=== PATIENT | female | born 1990 | race Caucasian/White ===

== ENCOUNTER 2018-06-10 11:10 | Emergency (ER) | payer OTHER, SELFPAY ==
[2018-06-10 11:14] VITALS: BP 106/58; PULSE 77; RESP 14; TEMP 36.7; O2SAT 100
--- NOTE | 2018-06-10 11:25 | DI.US.S_ITS ---
PROCEDURE: US PELVIC COMPLETE INDICATIONS: POSITIVE HOME ; VAGINAL BLEEDING TECHNIQUE: Real-time scanning was performed of the pelvic organs, with image documentation. Additional endovaginal scanning was necessary due to incomplete visualization of the adnexal and endometrial structures by transabdominal scanning. COMPARISON: None. FINDINGS: Transabdominal scanning: Limited scanning through the kidneys shows no hydronephrosis. No pathologic free abdominal or pelvic fluid. Endovaginal scanning: Uterus: Uterus is normal in size at 7.2 x 3.3 x 4.1 cm. The endometrium measures 7.2 mm in combined thickness. Minimal fluid is noted in the endometrium. Ovaries: Right ovary measures 20 x 19 x 24 mm. Left ovary measures 20 x 16 x 30 mm. IMPRESSION: 1. Unremarkable exam. No visualized intra-or extrauterine . Recommend correlation with beta hCG levels and continued interval followup as indicated. Dictated by: Martha Ring M.D. on 06/10/2018 at 13:39 Approved by: Martha Ring M.D. on 06/10/2018 at 13:40
[2018-06-10 11:41] LABS: Add Manual Diff / Slide Review NO; Basophils Absolute Auto 0 /uL (0-100); Basophils Percent Auto 0.4 % (0-2); Eosinophils Absolute Auto 200 /uL (0-450); Eosinophils Percent Auto 3.1 % (2-4); Hematocrit 41.9 % (36-46); Hemoglobin 14.3 g/dL (12.0-16.0); Lymphocytes Absolute Auto 2200 /uL (1100-4500); Lymphocytes Percent Auto 27.3 % (25-40); Mean Corpuscular HGB Conc 34.2 % (30-36); Mean Corpuscular Hemoglobin 30.7 PG (26-34); Mean Corpuscular Volume 89.9 fL (80-100); Monocytes Absolute Auto 700 /uL (0-900); Monocytes Percent Auto 8.6 % (3-14); Neutrophils Absolute Auto 4900 /uL (1500-7000); Neutrophils Percent Auto 60.6 % (50-75); Platelet Count 247 X10^3/uL (150-400); Red Blood Cell Count 4.66 X10^6/uL (4.0-5.2); Red Cell Distribution Width 12.7 % (11.6-14.8)
[2018-06-10 12:49] LABS: HCG Quantitative /Beta subunit 17.03 mIU/mL
[2018-06-10 13:29] VITALS: BP 121/66; PULSE 75; RESP 16; O2SAT 99
--- NOTE | 2018-06-10 14:09 | ED_ITS ---
HPI - Female Genitourinary General Chief complaint: Vaginal Bleeding Stated complaint: Less than 12wks ; States cramps/bleeding Time Seen by Provider: 06/10/18 11:14 Source: patient and family Mode of arrival: ambulatory Limitations: no limitations History of Present Illness HPI Narrative: 27-year-old female nonsmoker with minimal medical history presents with her in the chief complaint of some suprapubic cramping type tenderness as well as a small amount of vaginal bleeding, not unlike a period. Her and have been attempting to become for 6-7 months and when she missed her last period by a few days she took a test at home which was positive. She took total of 10 which were all weakly positive. she is possibly at 4 weeks. Her last normal period was just over 1 month ago and normal for her. The amount of bleeding is minimal as she has not saturated even 1 pad. She noticed some spotting when urinating yesterday and passed 1 small clot earlier today. She is not dizzy nor weak or lightheaded. She denies any vaginal discharge. She denies any fever or chills. Complaint: vaginal bleeding Onset (ago): hour(s) Location: suprapubic Severity: mild Quality: Aching and Cramping Duration: constant Relieving factors: none Vaginal discharge: blood, dark blood and blood clots Patient : Yes Associated symptoms: denies other symptoms Related Data Home Medications Medication Instructions Recorded Confirmed PNV cmb#95-ferrous fumarate-FA 1 tab PO BEDTIME 06/10/18 06/10/18 [] cholecalciferol (vitamin D3) 4,000 unit PO BEDTIME 06/10/18 06/10/18 [Vitamin D3] escitalopram oxalate [Lexapro] 10 mg PO BEDTIME 06/10/18 06/10/18 Allergies Allergy/AdvReac Type Severity Reaction Status Date / Time Sulfa (Sulfonamide Allergy Severe Hives Verified 06/10/18 11:19 Antibiotics) hydrocodone AdvReac Severe Vomiting Verified 06/10/18 11:19 Review of Systems Review of Systems ROS Unobtainable: All systems reviewed & are unremarkable except as noted in HPI and below Constitutional Denies chills, Denies fever(s), Denies lethargy and Denies weakness Eyes Denies change in vision, Denies eye discharge, Denies irritation and Denies loss of vision ENT Ears, Nose, Mouth, and Throat: Denies change in voice, Denies neck pain and Denies sore throat Cardiovascular Denies chest pain, Denies irregular heart rhythm, Denies lightheadedness, Denies palpitations, Denies dyspnea, Denies dyspnea on exertion and Denies orthopnea Respiratory Denies cough, Denies dyspnea, Denies dyspnea on exertion and Denies wheezing Gastrointestinal Gastrointestinal: Denies abdominal pain, Denies change in bowel habits, Denies diarrhea, Denies nausea and Denies vomiting Genitourinary Reports abnormal vaginal bleeding, Denies hematuria, Reports pelvic pain, Denies flank pain, Denies urinary incontinence and Denies urinary urgency Musculoskeletal Denies neck pain Integumentary/Breasts Denies pruritus, Denies erythema, Denies rash and Denies wounds Neurologic Denies confusion, Denies loss of vision and Denies weakness Psychiatric Denies anxiety, Denies confusion, Denies depression, Denies homicidal ideation and Denies suicidal ideation Endocrine Denies palpitations Hematologic/Lymphatic Denies easy bruising Allergic/Immunologic Denies wheezing [facility] Medical History Anxiety (Acute) Ovarian cyst (Acute) Vitamin D deficiency (Acute) Social History Smoking Status: Never smoker Social History Smoking Status: Never smoker Exam Narrative Exam Narrative: GEN: AOx3 and in mild distress EYES: Pupils are equal, round, and reactive to light and accommodation. Ex traoccular muscles are intact bilaterally. There is no subconjunctival hemorrhage or exudate. CHEST: Lungs are clear to auscultation bilaterally and free of wheezes, rales, or rhonchi. Heart rate is regular rhythm, there are no murmurs, clicks, rubs, or gallops. There is no chest wall tenderness. ABD: Abdomen is soft and suprapubic tenderness There is no guarding or rebound. Bowel sounds are normal in all 4 quadrants. There is no mass or organomegaly. EXT: Full painless ROM of all extremities with no loss of sensation or strength. SKIN: Warm, pink, and dry. No erythema or rash Initial Vital Signs Initial Vital Signs: Vital Signs Temperature 98.1 F 06/10/18 11:14 Pulse Rate 77 06/10/18 11:14 Respiratory Rate 14 06/10/18 11:14 Blood Pressure 106/58 L 06/10/18 11:14 Pulse Oximetry 100 06/10/18 11:14 Course Orders Ordered: ED Orders 06/10/18 11:25 US pelvic complete Stat 06/10/18 11:35 ABO RH Type Stat Complete Blood Count AUTO DIFF Stat HCG Quantitative Stat Vital Signs - 8 hr 06/10/18 11:14 06/10/18 13:29 Temperature 98.1 F Pulse Rate 77 75 Respiratory Rate 14 16 Blood Pressure 106/58 L Blood Pressure [Left Arm] 121/66 Pulse Oximetry 100 99 MDM - Female Genitourinary Lab Data Attestation: I reviewed the patient's lab results. Result diagrams: 06/10/18 11:35 Lab Results 06/10/18 06/10/18 06/10/18 Range/Units 11:35 11:35 11:35 WBC 8.0 (4.5-11.0) X10^3/uL RBC 4.66 (4.0-5.2) X10^6/uL Hgb 14.3 (12.0-16.0) g/dL Hct 41.9 (36-46) % MCV 89.9 (80-100) fL MCH 30.7 (26-34) PG MCHC 34.2 (30-36) % RDW 12.7 (11.6-14.8) % Plt Count 247 (150-400) X10^3/uL Neut % (Auto) 60.6 (50-75) % Lymph % (Auto) 27.3 (25-40) % [place] % (Auto) 8.6 (3-14) % Eos % (Auto) 3.1 (2-4) % Baso % (Auto) 0.4 (0-2) % Neut # (Auto) 4900 (6498-1913) /uL Lymph # (Auto) 2200 (5961-4593) /uL [place] # (Auto) 700 (0-900) /uL Eos # (Auto) 200 (0-450) /uL Baso # (Auto) 0 (0-100) /uL HCG, Quant 17.03 mIU/mL Blood Type O Positive Point of Care Testing Test Results Negative Urine Dip Bedside Urine Glucose Negative Bedside Urine Bilirubin - Negative Bedside Urine Ketone - Negative Urine Specific [place] 1.025 Bedside Urine Occult Blood ++ Bedside Urine pH 6.0 Bedside Urine Protein - Negative Bedside Urine Urobilinogen - Negative Bedside Urine Nitrite - Negative Bedside Urine Leukocytes - Negative Esterase Imaging Data US - abdomen: Radiologist's impression: GEN: AOx3 and in mild distress EYES: Pupils are equal, round, and reactive to light and accommodation. Extraoccular muscles are intact bilaterally. There is no subconjunctival hemorrhage or exudate. CHEST: Lungs are clear to auscultation bilaterally and free of wheezes, rales, or rhonchi. Heart rate is regular rhythm, there are no murmurs, clicks, rubs, or gallops. There is no chest wall tenderness. ABD: Abdomen is soft and nontender. There is no guarding or rebound. Bowel sounds are normal in all 4 quadrants. There is no mass or organomegaly. EXT: Full painless ROM of all extremities with no loss of sensation or strength. SKIN: Warm, pink, and dry. No erythema or rash MDM Narrative Medical decision making narrative: Multiple etiologies for patient's symptoms considered including: [Difficult to distinguish between missed early versus very early intrauterine with implantation bleeding versus ectopic ] Patient's symptoms improved or duration of stay with above-stated therapies. Findings and discharge diagnosis discussed with patient/family followed by verbalization of understanding Return precautions discussed with patient/family whom verbalize understanding. Discharge Plan Departure Patient Disposition: Home Clinical Impression: Vaginal bleeding Discharge Date/Time: 06/10/18 14:26 Interventions: ED Discharge Assessment Last Done: 06/10/18 14:20 Instructions: DI for Vaginal Bleeding Activity Restrictions/Additional Instructions: *You have been diagnosed with [ vaginal bleeding, possible very early ] *What to do: *Take medications as directed: Tylenol for pain, vitamins *Follow up with your primary care provider in 2-3 days, call for an appointment. Let them know you were seen in the Emergency Department and that we ask that you be seen in follow up * your urine was negative and the blood test was very very low. Nothing was noted on the ultrasound, at this point it is unclear if this is a very early , an ectopic , or a miscarriage. Follow-up is strongly advised *Return to ER if you should have any new, worsening or concerning symptoms such as worsening pain, fever over 101 F, bleeding through more than 1 pad per hour, or other concerning symptoms Prescriptions: No Action escitalopram oxalate [Lexapro] 10 mg Tablet 10 mg PO BEDTIME RF: 0 PNV cmb#95-ferrous fumarate-FA [] 28 mg iron- 800 mcg Tablet 1 tab PO BEDTIME RF: 0 Vitamin D3 4,000 unit Capsule 4,000 unit PO BEDTIME RF: 0 Referrals: Ofelia Farrell MD [Physician] -
== END 2018-06-10 14:26 | disposition home or self-care (01) ==
PROVIDERS: Emergency Provider Emergency Medicine
DX: O20.9 Hemorrhage in early pregnancy, unspecified (principal)
CPT/HCPCS: 36415; 76830; 76856; 81003; 81025; 84702; 85025; 86900; 86901; 99282; 99284